=== PATIENT | female | born 1950 | race Caucasian/White ===

== ENCOUNTER 2018-06-03 14:23 | Inpatient (IN) | payer MEDICARE, MEDICAID ==
[~2018-06-03] VITALS: Ht 177.8 cm; Wt 83.5 kg
[~2018-06-03 14:23] MED LIST: ASPI-1264 PO; BUPR-83 PO; CELE-193 PO; HYDR-4353 PO; LORA-512 PO; OMEP20CA10 PO; OXYB5TAB11 PO; SIME125C PO; SIME125C77 PO; TRAZ-218 PO; WALKERFR
[2018-06-03] MEDS ORDERED: metoclopramide 10mg tablet PO PRN (15:40)
[2018-06-03 16:37] VITALS: BP 134/63
[2018-06-03] MEDS: ascorbic acid 500mg tablet PO SCH (16:41)
[2018-06-03 18:00] VITALS: BP 108/56
[2018-06-03] MEDS ORDERED: buPROPion SR 150mg tablet PO SCH (20:00)
[2018-06-03] MEDS: nortriptyline 25mg capsule PO SCH (21:07)
[2018-06-03] MEDS: oxybutynin 5mg tablet PO SCH (21:07)
[2018-06-03 22:00] VITALS: BP 120/63
[2018-06-04] VITALS (17 sets, daily range): BP systolic 106–142; BP diastolic 44–85
--- NOTE | 2018-06-04 00:31 | NUR ---
pt fully ambulatory. no scd's Addendum: 06/04/18 at 0036 by Nellie Epperson RN Amended: Links added.
[2018-06-04] MEDS ORDERED: tranexamic acid inj. 830 MG in normal saline 100ml IV soln 100 ML IV ONE ×4 (05:30→15:00)
--- NOTE | 2018-06-04 06:45 | NUR ---
pt ready for surgery. check list complete. noted small IV, lab attempting to draw blood at this time. received order for symbacort. order placed
[2018-06-04] MEDS ORDERED: BUDE10.2 INH (06:47)
[2018-06-04] MEDS ORDERED: ketorolac trometh. 30mg/ml inj. ONE (06:49)
[2018-06-04] MEDS ORDERED: ROPIVAcaine 0.5% (5mg/ml) 30ml vial ONE ×2 (06:49→07:18)
[2018-06-04 07:07] LABS: BASOPHILS % (AUTO) 0.6 % (0-1); EOSINOPHILS # (AUTO) 0.1 X10'3 (0-0.9); EOSINOPHILS % (AUTO) 1.6 % (0-6); LYMPHOCYTES # (AUTO) 1.2 X10'3 (1.1-4.8); MEAN CORPUSCULAR HEMOGLOBIN 29.4 PG (27.0-31.0); MEAN CORPUSCULAR HGB CONC 33.7 g/dL (33.0-36.5); MEAN CORPUSCULAR VOLUME 87.2 FL (78-98); MEAN PLATELET VOLUME 6.7 FL (7.4-10.4); MONOCYTES # (AUTO) 0.9 X10'3 (0-0.9); MONOCYTES % (AUTO) 13.1 % (2-12); NEUTROPHILS # (AUTO) 4.7 X10'3 (1.8-7.7); NEUTROPHILS % (AUTO) 67.7 % (42-75); PRE OP HEMOGLOBIN 11.4 g/dL (12.0-16.0); PRE OP PLATELET COUNT 289 X10'3 (140-440); RED CELL DISTRIBUTION WIDTH 14.5 % (11.5-14.5)
[2018-06-04 07:19] LABS: ALBUMIN 2.6 G/DL (3.4-5.0); ALBUMIN/GLOBULIN RATIO 0.6 (1.1-1.5); ALKALINE PHOSPHATASE 74 IU/L (46-116); BLOOD UREA NITROGEN 14 MG/DL (7-18); BUN/CREATININE RATIO 17.3 (6.6-38.0); CALCIUM 8.9 MG/DL (8.5-10.1); CHLORIDE 104 MMOL/L (99-107); CREATININE 0.81 MG/DL (0.40-0.90); PRE OP ALT 27 U/L (30-65); PRE OP ANION GAP 7 (8-16); PRE OP AST 25 U/L (10-37); PRE OP BILIRUB, TOTAL 0.2 MG/DL (0.0-1.0); PRE OP GLUCOSE 88 MG/DL (70-104); PRE OP POTASSIUM 4.4 MMOL/L (3.4-5.1); PRE OP SODIUM 140 MMOL/L (135-145); TOTAL CARBON DIOXIDE 29.5 MMOL/L (24-32); TOTAL PROTEIN 6.8 G/DL (6.4-8.2); eGFR 71 ML/MIN
--- NOTE | 2018-06-04 07:20 | NUR ---
PATIENT TAKEN TO OR
[2018-06-04] MEDS ORDERED: cefazolin/dext.iso 2gm/100ml BAG IV ONE (07:21)
[2018-06-04] MEDS ORDERED: fentaNYL/PF 50MCG/1 ML 2ML syringe ONE (07:21)
[2018-06-04] MEDS ORDERED: sevoflurane 250ml liquid IH ONE (07:21)
[2018-06-04] MEDS ORDERED: vancomycin 1,000mg inj ONE (07:21)
[2018-06-04] MEDS ORDERED: midazolam 2 mg/2 ml injection ONE ×2 (07:22)
[2018-06-04] MEDS ORDERED: propofol inj 20 ML IV ONE (07:22)
[2018-06-04 07:25] LABS: PRE OP PARTIAL THROMB. TIME 26 SECONDS (22-32); PROTHROMBIN TIME 10.2 SECONDS (9.0-12.0)
[2018-06-04] MEDS: pantoprazole 40mg Tablet.DR PO SCH (07:30)
[2018-06-04] MEDS: oxybutynin 5mg tablet PO SCH ×3 (08:00→20:30)
[2018-06-04] MEDS: primidone 50mg tablet PO SCH (08:00)
[2018-06-04] MEDS: budesonide 0.5mg/2ml UD nebule IH SCH ×2 (08:00→20:23)
[2018-06-04] MEDS ORDERED: celeCOXIB 100mg capsule PO SCH (08:00)
[2018-06-04] MEDS: ferrous sulfate 325mg tablet PO SCH (08:00)
[2018-06-04] MEDS: cetirizine 10mg tablet PO SCH (08:00)
[2018-06-04] MEDS: vitamin D (cholecalciferol) 1,000 unit tablet PO SCH (08:00)
[2018-06-04] MEDS: ascorbic acid 500mg tablet PO SCH ×2 (08:30→17:30)
[2018-06-04] MEDS ORDERED: ringers solution, lacted 1,000 ML IV SCH (08:38)
[2018-06-04] MEDS ORDERED: morphine 4 MG/ML inj SYRINge IV PRN ×2 (08:40)
[2018-06-04] MEDS ORDERED: ondansetron/PF 4mg/2ml inj IV PRN ×2 (08:40→09:45)
[2018-06-04] MEDS ORDERED: proCHLORperazine 10 MG/2 ml inj IV PRN (08:40)
[2018-06-04] MEDS ORDERED: meperidine/PF 25mg/ml syringe IV PRN ×3 (08:40)
[2018-06-04 09:25] LABS: COLOR,SYNOVIAL FLUID RED
[2018-06-04 09:26] LABS: APPEARANCE,SYNOVIAL FLUID BLOODY
[2018-06-04 09:28] LABS: SYN RBC 106250 /CU MM (0); SYN WBC 51500 /CU MM (0-200)
[2018-06-04] MEDS: potassium cl 20mEq in 1/2 NS 1,000 ML IV SCH ×2 (09:42→16:04)
[2018-06-04] MEDS ORDERED: HYDROmorphone inj. 0.5 MG/0.5 ML DISP.SYRIN IV PRN (09:45)
[2018-06-04] MEDS ORDERED: bisacodyl 10mg suppository rectal RC PRN (09:45)
[2018-06-04] MEDS ORDERED: diphenhydrAMINE 25mg capsule PO PRN ×2 (09:45)
[2018-06-04] MEDS ORDERED: HYDROmorphone 1 mg/ml syringe IV PRN (09:45)
[2018-06-04] MEDS ORDERED: oxyCODONE IR 5mg (immed. release) tablet PO PRN (09:45)
[2018-06-04] MEDS ORDERED: magnesium hydroxide 30ml (MOM) UD suspension PO PRN (09:45)
[2018-06-04] MEDS ORDERED: acetaminophen 325mg tablet PO PRN (09:45)
--- NOTE | 2018-06-04 09:59 | NUR ---
Received from OR via , accompanied by Anesthesiologist DR HERNANDEZ and report given by Anesthesiolgist. AWAKENS TO VOICE. VITALS STABLE. DRESSING DI. ANALY PAIN. LT HAND WARM AND PINK. LUE IN SIMPLE SLING.
--- NOTE | 2018-06-04 10:49 | NUR ---
Report called to receiving nurse. Transferred via BED Belongings . Special Issues communicated to receiving nurse. AWAKE AND ORIENTED. VITALS STABLE. DRESSING DI. ANALY PAIN. TO ORTHO RM 4009C AT THIS TIME.
[2018-06-04] MEDS: acetaminophen 325mg tablet PO SCH ×2 (14:00→20:30)
[2018-06-04] MEDS: gabapentin 300mg capsule PO SCH ×2 (16:05→20:30)
[2018-06-04] MEDS: ceFAZolin 1GM/D5W- ADD-VANTAGE 50 ML IV SCH (16:05)
--- NOTE | 2018-06-04 18:27 | NUR ---
Report to Deanne Vang RN
--- NOTE | 2018-06-04 18:30 | NUR ---
Patient in room ORTHO 4012. I have received report from TATE Chacko and had the opportunity to ask questions and assume patient care.
[2018-06-04] MEDS ORDERED: vancomycin/NS 1 GM ADD-VANTAGE 250 ML IV SCH (20:00)
[2018-06-04] MEDS: lactobacillus rhamnosus 10,000 MMU CELLS/CAPSULE PO SCH (20:29)
[2018-06-04] MEDS: buPROPion SR 150mg tablet PO SCH (20:30)
[2018-06-04] MEDS: nortriptyline 25mg capsule PO SCH (20:30)
[2018-06-04] MEDS: sennosides 8.6mg tablet PO SCH (20:30)
[2018-06-05] MEDS: ceFAZolin 1GM/D5W- ADD-VANTAGE 50 ML IV SCH ×3 (00:05→17:01)
[2018-06-05] MEDS: benzonatate 100mg capsule PO PRN ×2 (01:13→14:07)
[2018-06-05] MEDS: acetaminophen 325mg tablet PO SCH ×4 (01:14→20:31)
[2018-06-05] MEDS: oxyCODONE IR 5mg (immed. release) tablet PO PRN ×4 (01:15→17:01)
[2018-06-05 02:45] VITALS: BP 118/62
[2018-06-05] MEDS: potassium cl 20mEq in 1/2 NS 1,000 ML IV SCH ×4 (03:06→22:31)
[2018-06-05 05:00] VITALS: BP 129/60
--- NOTE | 2018-06-05 05:22 | NUR ---
reviewed and agree with SRN assessment findings.
--- NOTE | 2018-06-05 05:33 | NUR ---
PULLED HEMOVAC PER DOCTORS ORDERS. 50mL OF DRAINAGE Addendum: 06/05/18 at 0534 by Danisha Moncada STUDENT REBECA WRONG PATIENT. DISREGARD
--- NOTE | 2018-06-05 06:11 | NUR ---
Problems reprioritized. Patient report given, questions answered & plan of care reviewed with TATE Chacko.
[2018-06-05 07:01] LABS: BASOPHILS % (AUTO) 0.4 % (0-1); EOSINOPHILS # (AUTO) 0.1 X10'3 (0-0.9); HEMATOCRIT 31.7 % (35.0-45.0); HEMOGLOBIN 10.6 g/dl (12.0-16.0); LYMPHOCYTES # (AUTO) 2.4 X10'3 (1.1-4.8); LYMPHOCYTES % (AUTO) 22.1 % (21-51); MEAN CORPUSCULAR HEMOGLOBIN 29.8 PG (27.0-31.0); MEAN CORPUSCULAR HGB CONC 33.4 g/dL (33.0-36.5); MEAN CORPUSCULAR VOLUME 89.1 FL (78-98); MEAN PLATELET VOLUME 7.2 FL (7.4-10.4); MONOCYTES # (AUTO) 1.3 X10'3 (0-0.9); NEUTROPHILS # (AUTO) 6.9 X10'3 (1.8-7.7); NEUTROPHILS % (AUTO) 64.5 % (42-75); PLATELET COUNT 321 X10'3 (140-440); RED BLOOD COUNT 3.56 X10'6 (4.20-5.60); RED CELL DISTRIBUTION WIDTH 14.8 % (11.5-14.5); WHITE BLOOD COUNT 10.7 X10'3 (4.5-11.0)
[2018-06-05 07:06] LABS: ANION GAP 6 (8-16); CHLORIDE 104 MMOL/L (99-107); POTASSIUM 4.5 MMOL/L (3.5-5.1); SODIUM 137 MMOL/L (135-145); TOTAL CARBON DIOXIDE 27.1 MMOL/L (24-32)
[2018-06-05] MEDS: pantoprazole 40mg Tablet.DR PO SCH (07:30)
[2018-06-05] MEDS: budesonide 0.5mg/2ml UD nebule IH SCH ×2 (08:48→19:59)
[2018-06-05] MEDS: gabapentin 300mg capsule PO SCH ×3 (09:09→20:31)
[2018-06-05] MEDS: ferrous sulfate 325mg tablet PO SCH (09:09)
[2018-06-05] MEDS: ascorbic acid 500mg tablet PO SCH ×2 (09:10→17:02)
[2018-06-05] MEDS: vitamin D (cholecalciferol) 1,000 unit tablet PO SCH (09:10)
[2018-06-05] MEDS: lactobacillus rhamnosus 10,000 MMU CELLS/CAPSULE PO SCH ×2 (09:10→20:31)
[2018-06-05] MEDS: celeCOXIB 100mg capsule PO SCH ×2 (09:10→20:30)
[2018-06-05] MEDS: primidone 50mg tablet PO SCH (09:11)
[2018-06-05] MEDS: buPROPion SR 150mg tablet PO SCH ×2 (09:12→20:30)
[2018-06-05] MEDS: aspirin 325mg tablet PO SCH (09:12)
[2018-06-05] MEDS: oxybutynin 5mg tablet PO SCH ×3 (09:12→20:30)
[2018-06-05] MEDS: cetirizine 10mg tablet PO SCH (09:12)
[2018-06-05 10:00] VITALS: BP 115/50
[2018-06-05 14:00] VITALS: BP 107/35
[2018-06-05] MEDS: vancomycin inj 1,250 MG in NS 250ml IV soln IV SCH (14:04)
[2018-06-05 18:00] VITALS: BP 131/41
--- NOTE | 2018-06-05 18:25 | NUR ---
Report to Deanne Vang RN
[2018-06-05] MEDS: nortriptyline 25mg capsule PO SCH (20:30)
[2018-06-05] MEDS: sennosides 8.6mg tablet PO SCH (20:31)
[2018-06-05] MEDS: traZODone 50mg tablet PO PRN (20:35)
[2018-06-05 22:00] VITALS: BP 120/46
--- NOTE | 2018-06-05 23:32 | NUR ---
Reviewed and agree with SRN assessment findings.
[2018-06-06] MEDS: oxyCODONE IR 5mg (immed. release) tablet PO PRN ×6 (00:08→22:07)
[2018-06-06] MEDS: vancomycin inj 1,250 MG in NS 250ml IV soln IV SCH ×3 (00:09→23:54)
[2018-06-06] MEDS: acetaminophen 325mg tablet PO SCH ×2 (02:00→09:50)
[2018-06-06 05:00] VITALS: BP 128/53
--- NOTE | 2018-06-06 06:25 | NUR ---
Problems reprioritized. Patient report given, questions answered & plan of care reviewed with TATE CALIXTO.
[2018-06-06 07:26] LABS: BASOPHILS % (AUTO) 0.7 % (0-1); EOSINOPHILS # (AUTO) 0.2 X10'3 (0-0.9); EOSINOPHILS % (AUTO) 3.3 % (0-6); HEMATOCRIT 31.6 % (35.0-45.0); HEMOGLOBIN 10.6 g/dl (12.0-16.0); LYMPHOCYTES # (AUTO) 1.8 X10'3 (1.1-4.8); LYMPHOCYTES % (AUTO) 24.2 % (21-51); MEAN CORPUSCULAR HEMOGLOBIN 29.8 PG (27.0-31.0); MEAN CORPUSCULAR HGB CONC 33.4 g/dL (33.0-36.5); MEAN CORPUSCULAR VOLUME 89.2 FL (78-98); MONOCYTES # (AUTO) 0.8 X10'3 (0-0.9); MONOCYTES % (AUTO) 10.7 % (2-12); NEUTROPHILS # (AUTO) 4.5 X10'3 (1.8-7.7); NEUTROPHILS % (AUTO) 61.1 % (42-75); PLATELET COUNT 263 X10'3 (140-440); RED BLOOD COUNT 3.54 X10'6 (4.20-5.60); RED CELL DISTRIBUTION WIDTH 14.9 % (11.5-14.5); WHITE BLOOD COUNT 7.4 X10'3 (4.5-11.0)
[2018-06-06] MEDS: budesonide 0.5mg/2ml UD nebule IH SCH ×2 (09:15→20:24)
[2018-06-06] MEDS ORDERED: acetaminophen 325mg tablet PO PRN (09:45)
[2018-06-06] MEDS: gabapentin 300mg capsule PO SCH ×3 (09:49→21:08)
[2018-06-06] MEDS: aspirin 325mg tablet PO SCH (09:49)
[2018-06-06] MEDS: buPROPion SR 150mg tablet PO SCH ×2 (09:49→21:08)
[2018-06-06] MEDS: lactobacillus rhamnosus 10,000 MMU CELLS/CAPSULE PO SCH ×2 (09:50→21:08)
[2018-06-06] MEDS: primidone 50mg tablet PO SCH (09:50)
[2018-06-06] MEDS: ferrous sulfate 325mg tablet PO SCH (09:50)
[2018-06-06] MEDS: ascorbic acid 500mg tablet PO SCH ×2 (09:50→18:02)
[2018-06-06] MEDS: cetirizine 10mg tablet PO SCH (09:51)
[2018-06-06] MEDS: oxybutynin 5mg tablet PO SCH ×3 (09:51→21:08)
[2018-06-06] MEDS: celeCOXIB 100mg capsule PO SCH ×2 (09:51→21:08)
[2018-06-06] MEDS: pantoprazole 40mg Tablet.DR PO SCH (09:51)
[2018-06-06] MEDS: vitamin D (cholecalciferol) 1,000 unit tablet PO SCH (09:58)
[2018-06-06 10:00] VITALS: BP 121/48
[2018-06-06 18:00] VITALS: BP 131/44
--- NOTE | 2018-06-06 18:29 | NUR ---
Problems reprioritized. Patient report given, questions answered & plan of care reviewed with TATE Roman.
--- NOTE | 2018-06-06 18:39 | NUR ---
Report rec'd from danielle Sutton.
[2018-06-06] MEDS: nortriptyline 25mg capsule PO SCH (21:07)
[2018-06-06] MEDS: traZODone 50mg tablet PO PRN (21:09)
[2018-06-06] MEDS: sennosides 8.6mg tablet PO SCH (21:09)
[2018-06-06 22:00] VITALS: BP 110/42
[2018-06-06] MEDS ORDERED: VANCOMYCIN LEVEL IV ONE (23:30)
--- NOTE | 2018-06-07 00:30 | NUR ---
Vanco Trough 22.3, vanco stopped. pharmacy notified, will readjust and dose next.
[2018-06-07] MEDS: oxyCODONE IR 5mg (immed. release) tablet PO PRN ×4 (05:00→21:20)
--- NOTE | 2018-06-07 06:18 | NUR ---
REPORT GIVEN TO TATE MACIAS.
--- NOTE | 2018-06-07 06:39 | NUR ---
RECEIVED REPORT FROM BUNNY YBARRA
--- NOTE | 2018-06-07 06:42 | NUR ---
Received report from Jessie
[2018-06-07 06:54] LABS: BASOPHILS % (AUTO) 0.7 % (0-1); EOSINOPHILS # (AUTO) 0.3 X10'3 (0-0.9); EOSINOPHILS % (AUTO) 3.9 % (0-6); HEMATOCRIT 29.5 % (35.0-45.0); HEMOGLOBIN 9.9 g/dl (12.0-16.0); LYMPHOCYTES # (AUTO) 1.6 X10'3 (1.1-4.8); LYMPHOCYTES % (AUTO) 21.8 % (21-51); MEAN CORPUSCULAR HGB CONC 33.5 g/dL (33.0-36.5); MEAN CORPUSCULAR VOLUME 89.6 FL (78-98); MEAN PLATELET VOLUME 6.7 FL (7.4-10.4); MONOCYTES # (AUTO) 0.9 X10'3 (0-0.9); MONOCYTES % (AUTO) 12.3 % (2-12); NEUTROPHILS # (AUTO) 4.4 X10'3 (1.8-7.7); NEUTROPHILS % (AUTO) 61.3 % (42-75); PLATELET COUNT 271 X10'3 (140-440); RED BLOOD COUNT 3.29 X10'6 (4.20-5.60); RED CELL DISTRIBUTION WIDTH 14.3 % (11.5-14.5); WHITE BLOOD COUNT 7.2 X10'3 (4.5-11.0)
[2018-06-07 06:57] LABS: ALBUMIN 2.2 G/DL (3.4-5.0); ANION GAP 5 (8-16); BLOOD UREA NITROGEN 13 MG/DL (7-18); BUN/CREATININE RATIO 16.5 (6.6-38.0); CALCIUM 8.7 MG/DL (8.5-10.1); CHLORIDE 103 MMOL/L (99-107); CREATININE 0.79 MG/DL (0.40-0.90); GLUCOSE 84 MG/DL (70-104); POTASSIUM 4.3 MMOL/L (3.5-5.1); SODIUM 138 MMOL/L (135-145); TOTAL CARBON DIOXIDE 30.3 MMOL/L (24-32); eGFR 73 ML/MIN
[2018-06-07 07:15] VITALS: BP 106/82
--- NOTE | 2018-06-07 08:22 | NUR ---
left shoulder surgical site, wrapped and in a sling Addendum: 06/07/18 at 0826 by Laura JOSE Amended: Links added.
[2018-06-07] MEDS: gabapentin 300mg capsule PO SCH ×3 (08:45→20:22)
[2018-06-07] MEDS: ascorbic acid 500mg tablet PO SCH ×2 (08:45→16:48)
[2018-06-07] MEDS: vitamin D (cholecalciferol) 1,000 unit tablet PO SCH (08:45)
[2018-06-07] MEDS: aspirin 325mg tablet PO SCH (08:45)
[2018-06-07] MEDS: ferrous sulfate 325mg tablet PO SCH (08:46)
[2018-06-07] MEDS: cetirizine 10mg tablet PO SCH (08:46)
[2018-06-07] MEDS: buPROPion SR 150mg tablet PO SCH ×2 (08:46→20:22)
[2018-06-07] MEDS: primidone 50mg tablet PO SCH (08:46)
[2018-06-07] MEDS: celeCOXIB 100mg capsule PO SCH ×2 (08:47→20:22)
[2018-06-07] MEDS: lactobacillus rhamnosus 10,000 MMU CELLS/CAPSULE PO SCH ×2 (08:47→20:22)
[2018-06-07] MEDS: pantoprazole 40mg Tablet.DR PO SCH (08:47)
[2018-06-07] MEDS: oxybutynin 5mg tablet PO SCH ×3 (08:47→20:22)
[2018-06-07] MEDS: budesonide 0.5mg/2ml UD nebule IH SCH ×2 (08:47→19:44)
[2018-06-07 10:00] VITALS: BP 123/52
[2018-06-07] MEDS: vancomycin/NS 1 GM ADD-VANTAGE 250 ML IV SCH (13:00)
[2018-06-07 18:00] VITALS: BP 110/44
--- NOTE | 2018-06-07 18:06 | NUR ---
REPORT GIVEN TO GUILLERMINA YBARRA
--- NOTE | 2018-06-07 19:00 | NUR ---
REPORT REC'D FROM TATE MACIAS.
[2018-06-07] MEDS: nortriptyline 25mg capsule PO SCH (20:22)
[2018-06-07] MEDS: traZODone 50mg tablet PO PRN (20:22)
[2018-06-07] MEDS: sennosides 8.6mg tablet PO SCH (20:22)
[2018-06-07 22:00] VITALS: BP 137/47
[2018-06-08] MEDS: vancomycin/NS 1 GM ADD-VANTAGE 250 ML IV SCH ×2 (01:33→12:10)
[2018-06-08] MEDS: oxyCODONE IR 5mg (immed. release) tablet PO PRN ×5 (03:26→20:12)
--- NOTE | 2018-06-08 06:54 | NUR ---
REPORT GIVEN TO TATE CHAMPAGNE.
[2018-06-08 07:08] VITALS: BP 103/39
[2018-06-08] MEDS ORDERED: CETI10TA14 PO (07:49)
[2018-06-08] MEDS ORDERED: FERR-29 PO (07:49)
[2018-06-08] MEDS ORDERED: PRIM250T48 PO (07:49)
[2018-06-08] MEDS ORDERED: NORT25CA PO (07:49)
[2018-06-08] MEDS ORDERED: CHOL50004 PO (07:49)
[2018-06-08] MEDS ORDERED: BENZ-49 PO (07:49)
[2018-06-08] MEDS ORDERED: METO10TA3 PO (07:52)
[2018-06-08 07:54] LABS: ALBUMIN 2.1 G/DL (3.4-5.0); ANION GAP 5 (8-16); BLOOD UREA NITROGEN 14 MG/DL (7-18); BUN/CREATININE RATIO 17.5 (6.6-38.0); CALCIUM 8.5 MG/DL (8.5-10.1); CHLORIDE 104 MMOL/L (99-107); GLUCOSE 87 MG/DL (70-104); POTASSIUM 4.2 MMOL/L (3.5-5.1); SODIUM 137 MMOL/L (135-145); TOTAL CARBON DIOXIDE 28.1 MMOL/L (24-32); eGFR 72 ML/MIN
[2018-06-08] MEDS: budesonide 0.5mg/2ml UD nebule IH SCH ×2 (08:00→19:54)
[2018-06-08] MEDS: oxybutynin 5mg tablet PO SCH ×3 (08:13→20:12)
[2018-06-08] MEDS: primidone 50mg tablet PO SCH (08:14)
[2018-06-08] MEDS: ascorbic acid 500mg tablet PO SCH ×2 (08:14→16:33)
[2018-06-08] MEDS: lactobacillus rhamnosus 10,000 MMU CELLS/CAPSULE PO SCH ×2 (08:14→20:12)
[2018-06-08] MEDS: pantoprazole 40mg Tablet.DR PO SCH (08:14)
[2018-06-08] MEDS: aspirin 325mg tablet PO SCH (08:14)
[2018-06-08] MEDS: cetirizine 10mg tablet PO SCH (08:14)
[2018-06-08] MEDS: ferrous sulfate 325mg tablet PO SCH (08:14)
[2018-06-08] MEDS: vitamin D (cholecalciferol) 1,000 unit tablet PO SCH (08:14)
[2018-06-08] MEDS: gabapentin 300mg capsule PO SCH ×3 (08:14→20:12)
[2018-06-08] MEDS: celeCOXIB 100mg capsule PO SCH ×2 (08:14→20:12)
[2018-06-08] MEDS: buPROPion SR 150mg tablet PO SCH ×2 (08:14→20:12)
[2018-06-08 11:54] VITALS: BP 111/53
--- NOTE | 2018-06-08 13:28 | NUR ---
Initial: Pt s/p antibiotic spacer to L shoulder. LBM 06/03 on iron and senna. Pt passing gas and declines taking additional bowel care at this time. Pt PO 100% regular meals meeting needs. Will continue to monitor. Rec: 1. continue regular diet 2. routine bowel care 3. wt per rx Addendum: 06/08/18 at [address] Amended: Links added.
[2018-06-08 17:30] VITALS: BP 120/51
[2018-06-08] MEDS: sennosides 8.6mg tablet PO SCH (20:12)
[2018-06-08] MEDS: nortriptyline 25mg capsule PO SCH (20:12)
[2018-06-08 23:04] VITALS: BP 128/68
[2018-06-08] MEDS ORDERED: VANCOMYCIN LEVEL IV NR (23:30)
[2018-06-09] MEDS: oxyCODONE IR 5mg (immed. release) tablet PO PRN ×3 (00:02→12:04)
[2018-06-09] MEDS: vancomycin/NS 1 GM ADD-VANTAGE 250 ML IV SCH ×2 (00:03→12:05)
[2018-06-09 06:00] VITALS: BP 131/67
[2018-06-09 06:11] LABS: ALBUMIN 2.3 G/DL (3.4-5.0); ANION GAP 4 (8-16); BLOOD UREA NITROGEN 12 MG/DL (7-18); BUN/CREATININE RATIO 14.6 (6.6-38.0); CALCIUM 8.3 MG/DL (8.5-10.1); CHLORIDE 104 MMOL/L (99-107); CREATININE 0.82 MG/DL (0.40-0.90); GLUCOSE 85 MG/DL (70-104); POTASSIUM 4.1 MMOL/L (3.5-5.1); SODIUM 138 MMOL/L (135-145); TOTAL CARBON DIOXIDE 29.9 MMOL/L (24-32); eGFR 70 ML/MIN
[2018-06-09] MEDS: pantoprazole 40mg Tablet.DR PO SCH (07:37)
[2018-06-09] MEDS: celeCOXIB 100mg capsule PO SCH (07:38)
[2018-06-09] MEDS: primidone 50mg tablet PO SCH (07:38)
[2018-06-09] MEDS: oxybutynin 5mg tablet PO SCH ×2 (07:38→12:04)
[2018-06-09] MEDS: lactobacillus rhamnosus 10,000 MMU CELLS/CAPSULE PO SCH (07:38)
[2018-06-09] MEDS: ferrous sulfate 325mg tablet PO SCH (07:38)
[2018-06-09] MEDS: gabapentin 300mg capsule PO SCH ×2 (07:38→12:04)
[2018-06-09] MEDS: ascorbic acid 500mg tablet PO SCH (07:39)
[2018-06-09] MEDS: aspirin 325mg tablet PO SCH (07:39)
[2018-06-09] MEDS: cetirizine 10mg tablet PO SCH (07:39)
[2018-06-09] MEDS: buPROPion SR 150mg tablet PO SCH (07:39)
[2018-06-09] MEDS: vitamin D (cholecalciferol) 1,000 unit tablet PO SCH (07:39)
[2018-06-09] MEDS ORDERED: ondansetron 4mg rapidly disintigrating tab PO ONE (08:25)
[2018-06-09 10:00] VITALS: BP 119/49
[2018-06-09] MEDS: budesonide 0.5mg/2ml UD nebule IH SCH (11:31)
--- NOTE | 2018-06-09 13:16 | NUR ---
Report called to GUSTAVO Wells RN, no tele, Picc line remaining in for Antibiotic use.
== END 2018-06-09 15:35 | DRG 496 ==
LOC: ORTHO 4S 14:23 → EDSTATUS 06-04 07:30
PROVIDERS: ADMIT Orthopaedic Surgery; ATTEND Orthopaedic Surgery
PROC: 0RPK0JZ Removal of Synthetic Substitute from Left Shoulder Joint, Open Approach (ICD-10-PCS; 2018-06-04)
PROC: 3E0R3BZ Introduction of Anesthetic Agent into Spinal Canal, Percutaneous Approach (ICD-10-PCS; 2018-06-04)
PROC: 0RHK08Z Insertion of Spacer into Left Shoulder Joint, Open Approach (ICD-10-PCS; principal; 2018-06-04 07:21)
PROC: 02HV33Z Insertion of Infusion Device into Superior Vena Cava, Percutaneous Approach (ICD-10-PCS; 2018-06-09)
PROC: 4A02X4A Measurement of Cardiac Electrical Activity, Guidance, External Approach (ICD-10-PCS; 2018-06-09)
DX: T84.59XA Infection and inflammatory reaction due to other internal joint prosthesis, initial encounter (principal); D62 Acute posthemorrhagic anemia; M75.122 Complete rotator cuff tear or rupture of left shoulder, not specified as traumatic; K21.9 Gastro-esophageal reflux disease without esophagitis; F32.9 Major depressive disorder, single episode, unspecified; Z96.619 Presence of unspecified artificial shoulder joint; Z79.82 Long term (current) use of aspirin
CPT/HCPCS: 36415; 36569; 76937; 80048; 80051; 80053; 80202; 82948; 85025; 85610; 85730; 87070; 87075; 87102; 87176; 89051; 93005; 94640; 94760; A4565; A7000; C1713; G0378; J0690; J1885; J2250; J2405; J2704; J2795; J3010; J3370; J7030; J7040; J7120; J7626

== ENCOUNTER 2018-06-21 12:13 | Emergency (ER) | payer MEDICARE, MEDICAID ==
[~2018-06-21] VITALS: Ht 304.8 cm; Wt 83.2 kg
[~2018-06-21 12:13] MED LIST changes: +BENZ-49 PO; +BUDE10.2 INH; +CETI10TA14 PO; +CHOL50004 PO; +FERR-29 PO; -HYDR-4353 PO; -LORA-512 PO; +METO10TA3 PO; +NORT25CA PO; +PRIM250T48 PO; -SIME125C PO; -SIME125C77 PO
[2018-06-21 12:15] VITALS: BP 117/48
[2018-06-21 12:51] LABS: BASOPHILS % (AUTO) 0.6 % (0-1); EOSINOPHILS # (AUTO) 0.3 X10'3 (0-0.9); EOSINOPHILS % (AUTO) 4.3 % (0-6); HEMATOCRIT 31.1 % (35.0-45.0); HEMOGLOBIN 10.6 g/dl (12.0-16.0); LYMPHOCYTES % (AUTO) 17.1 % (21-51); MEAN CORPUSCULAR HEMOGLOBIN 30.3 PG (27.0-31.0); MEAN CORPUSCULAR HGB CONC 33.9 g/dL (33.0-36.5); MEAN CORPUSCULAR VOLUME 89.4 FL (78-98); MEAN PLATELET VOLUME 6.6 FL (7.4-10.4); MONOCYTES # (AUTO) 0.7 X10'3 (0-0.9); MONOCYTES % (AUTO) 12.3 % (2-12); NEUTROPHILS % (AUTO) 65.7 % (42-75); PLATELET COUNT 264 X10'3 (140-440); RED BLOOD COUNT 3.48 X10'6 (4.20-5.60); RED CELL DISTRIBUTION WIDTH 14.9 % (11.5-14.5)
[2018-06-21 13:04] LABS: ALANINE AMINOTRANSFERASE 33 U/L (12-78); ALBUMIN 2.7 G/DL (3.4-5.0); ALBUMIN/GLOBULIN RATIO 0.6 (1.1-1.5); ALKALINE PHOSPHATASE 115 IU/L (46-116); ANION GAP 4 (8-16); ASPARTATE AMINO TRANSFERASE 30 U/L (10-37); BILIRUBIN,TOTAL 0.3 MG/DL (0.1-1.0); BLOOD UREA NITROGEN 11 MG/DL (7-18); BUN/CREATININE RATIO 14.3 (6.6-38.0); CALCIUM 8.4 MG/DL (8.5-10.1); CHLORIDE 100 MMOL/L (99-107); CREATININE 0.77 MG/DL (0.40-0.90); GLUCOSE 109 MG/DL (70-104); SODIUM 134 MMOL/L (135-145); TOTAL CARBON DIOXIDE 29.7 MMOL/L (24-32); eGFR 75 ML/MIN
--- NOTE | 2018-06-21 14:20 | NUR ---
TC TO [facility]. NURSE ON DUTY STATES THAT PATIENT SHOULD RETURN TO THE FACILITY VIA [facility]. DC INSTRUCTIONS GIVEN TO PATIENT AND VERBALIZED UNDERSTANDING.
== END 2018-06-21 14:25 | disposition home or self-care (01) ==
LOC: ER 12:13
DX: T84.59XA Infection and inflammatory reaction due to other internal joint prosthesis, initial encounter (principal); G43.909 Migraine, unspecified, not intractable, without status migrainosus; K21.9 Gastro-esophageal reflux disease without esophagitis; G89.29 Other chronic pain; Z98.890 Other specified postprocedural states; Z88.5 Allergy status to narcotic agent; Z88.8 Allergy status to other drugs, medicaments and biological substances; Z91.030 Bee allergy status; Z79.899 Other long term (current) drug therapy; Z79.82 Long term (current) use of aspirin; Z96.612 Presence of left artificial shoulder joint
CPT/HCPCS: 36415; 71045; 80053; 83605; 84145; 85025; 87040; 99284

== ENCOUNTER 2018-06-30 21:51 | Emergency (ER) | payer MEDICARE, MEDICAID | END 2018-06-30 21:59 | disposition left against medical advice (07) | LOC: ER 21:52 | DX: T82.49XA Other complication of vascular dialysis catheter, initial encounter (principal); Z53.21 Procedure and treatment not carried out due to patient leaving prior to being seen by health care provider; Y92.89 Other specified places as the place of occurrence of the external cause ==

== ENCOUNTER 2018-12-01 10:49 | Inpatient (IN) | payer MEDICARE, MEDICAID ==
[2018-11-23 14:44] LABS: BASOPHILS # (AUTO) 0.1 X10'3 (0-0.2); BASOPHILS % (AUTO) 0.7 % (0-1); EOSINOPHILS # (AUTO) 0.1 X10'3 (0-0.9); EOSINOPHILS % (AUTO) 1.6 % (0-6); LYMPHOCYTES # (AUTO) 1.5 X10'3 (1.1-4.8); LYMPHOCYTES % (AUTO) 17.9 % (21-51); MEAN CORPUSCULAR HEMOGLOBIN 30.1 PG (27.0-31.0); MEAN CORPUSCULAR HGB CONC 34.4 g/dL (33.0-36.5); MEAN CORPUSCULAR VOLUME 87.4 FL (78-98); MEAN PLATELET VOLUME 6.9 FL (7.4-10.4); MONOCYTES # (AUTO) 0.8 X10'3 (0-0.9); MONOCYTES % (AUTO) 10.1 % (2-12); NEUTROPHILS # (AUTO) 5.7 X10'3 (1.8-7.7); NEUTROPHILS % (AUTO) 69.7 % (42-75); PRE OP HEMATOCRIT 41.2 % (35.0-45.0); PRE OP HEMOGLOBIN 14.2 g/dL (12.0-16.0); PRE OP PLATELET COUNT 340 X10'3 (140-440); RED BLOOD COUNT 4.71 X10'6 (4.20-5.60); RED CELL DISTRIBUTION WIDTH 13.6 % (11.5-14.5)
[2018-11-23 14:57] LABS: PRE OP INR 0.9 INR; PRE OP PROTIME 9.9 SECONDS (9.0-12.0)
[2018-11-23 15:00] LABS: ALBUMIN 3.4 G/DL (3.4-5.0); ALBUMIN/GLOBULIN RATIO 0.7 (1.1-1.5); ALKALINE PHOSPHATASE 114 IU/L (46-116); BLOOD UREA NITROGEN 13 MG/DL (7-18); BUN/CREATININE RATIO 14.3 (6.6-38.0); CALCIUM 9.4 MG/DL (8.5-10.1); CHLORIDE 104 MMOL/L (99-107); CREATININE 0.91 MG/DL (0.40-0.90); PRE OP ALT 22 U/L (30-65); PRE OP ANION GAP 8 (8-16); PRE OP AST 20 U/L (10-37); PRE OP BILIRUB, TOTAL 0.3 MG/DL (0.0-1.0); PRE OP GLUCOSE 99 MG/DL (70-104); PRE OP POTASSIUM 4.3 MMOL/L (3.4-5.1); PRE OP SODIUM 139 MMOL/L (135-145); TOTAL CARBON DIOXIDE 26.6 MMOL/L (24-32); TOTAL PROTEIN 8.4 G/DL (6.4-8.2); eGFR 61 ML/MIN
[~2018-12-01] VITALS: Ht 175.3 cm; Wt 93.0 kg
[2018-12-01] VITALS (16 sets, daily range): BP systolic 120–168; BP diastolic 55–81
[~2018-12-01 10:49] MED LIST changes: +ASCO500C15 PO; -ASPI-1264 PO; +BIOT50002 PO; +MESSAGE TO NURSING IV ONE; -OMEP20CA10 PO; +OMEP20CA11 PO; -OXYB5TAB11 PO; +OXYB5TAB16 PO; -PRIM250T48 PO; +PRIM250T8 PO; -TRAZ-218 PO; +TRAZ-251 PO; -WALKERFR; +albuterol 2.5 MG/3 ML nebule NEB ONE; +famotidine 20mg tablet PO ONE; +ringers solution, lacted 1,000 ML IV SCH
[2018-12-01] MEDS ORDERED: cefazolin/dext.iso 2gm/50ml 50 ML IV ONE (13:50)
[2018-12-01] MEDS ORDERED: ROPIVAcaine 0.5% (5mg/ml) 30ml vial ONE ×2 (13:52→14:54)
[2018-12-01] MEDS ORDERED: tranexamic acid inj. 920 MG in normal saline 100ml IV soln 100 ML IV ONE ×4 (13:55)
[2018-12-01] MEDS ORDERED: vancomycin inj 1,500 MG in normal saline 300ml IV soln IV ONE (14:40)
[2018-12-01] MEDS ORDERED: ketorolac trometh. 30mg/ml inj. ONE (14:52)
[2018-12-01] MEDS ORDERED: propofol inj 20 ML IV ONE (14:53)
[2018-12-01] MEDS ORDERED: LIDOcaine 2% (20mg/ml) 5ml vial ONE (14:53)
[2018-12-01] MEDS ORDERED: dexamethasone sod phosphate 4mg/ml inj. ONE (14:54)
[2018-12-01] MEDS ORDERED: fentaNYL/PF 50MCG/1 ML 2ML syringe ONE ×2 (15:01→15:31)
[2018-12-01] MEDS ORDERED: sevoflurane 250ml liquid IH ONE (15:28)
[2018-12-01] MEDS ORDERED: ondansetron/PF 4mg/2ml inj ONE (15:28)
[2018-12-01] MEDS ORDERED: MIDAZolam 5mg/5ml vial ONE (15:31)
[2018-12-01] MEDS ORDERED: ondansetron/PF 4mg/2ml inj IV PRN ×2 (16:40→18:05)
[2018-12-01] MEDS ORDERED: morphine 4 MG/ML inj SYRINge IV PRN ×2 (16:40)
[2018-12-01] MEDS ORDERED: proCHLORperazine 10 MG/2 ml inj IV PRN (16:40)
[2018-12-01] MEDS ORDERED: meperidine/PF 25mg/ml syringe IV PRN ×3 (16:40)
[2018-12-01] MEDS ORDERED: ringers solution, lacted 1,000 ML IV SCH (16:40)
[2018-12-01] MEDS ORDERED: ROPIVAcaine 0.2%/PF PAIN PUMP 550 ML IJ SCH (17:01)
[2018-12-01] MEDS ORDERED: vancomycin 1,000mg inj ONE (17:27)
--- NOTE | 2018-12-01 18:00 | NUR ---
ADMITTED TO PACU FROM OR ACCOMPANIED BY ANESTHESIA. INTIAL PHYSICAL ASSESSMENT DONE AND RECORDED. AWAKE AND RESPONSE ON ARRIVE YO PACU, REPORT RECEIVED FROM ANESTHESIA.
[2018-12-01] MEDS ORDERED: HYDROmorphone inj. 0.5 MG/0.5 ML DISP.SYRIN IV PRN (18:05)
[2018-12-01] MEDS ORDERED: bisacodyl 10mg suppository rectal RC PRN (18:05)
[2018-12-01] MEDS ORDERED: acetaminophen 325mg tablet PO PRN (18:05)
[2018-12-01] MEDS ORDERED: diphenhydrAMINE 25mg capsule PO PRN ×2 (18:05)
[2018-12-01] MEDS ORDERED: magnesium hydroxide 30ml (MOM) UD suspension PO PRN (18:05)
[2018-12-01] MEDS ORDERED: HYDROmorphone 1 mg/ml syringe IV PRN (18:05)
[2018-12-01] MEDS ORDERED: oxyCODONE IR 5mg (immed. release) tablet PO PRN (18:05)
--- NOTE | 2018-12-01 18:45 | NUR ---
PACU DISCHARGE CRITERIA MET, REPORT GIVEN TO FLOOR. DENIES PAIN OR DISCOMFORT, TRANSFERRED TO ROOM IN STABLE GOOD CONDITION.
[2018-12-01 19:29] LABS: APPEARANCE,SYNOVIAL FLUID BLOODY; COLOR,SYNOVIAL FLUID RED
[2018-12-01 19:30] LABS: LYMPHOCYTES,SYNOVIAL FLUID 48 % (0-75); MONOCYTES,SYNOVIAL FLUID 32 % (0-0); NEUTROPHILS,SYNOVIAL FLUID 20 % (0-25); SYN RBC 42300 /CU MM (0); SYN WBC 402 /CU MM (0-200)
[2018-12-01 19:37] LABS: SYNOVIAL LINING CELLS MANY
[2018-12-01] MEDS ORDERED: vancomycin/NS 1 GM ADD-VANTAGE 250 ML IV SCH (20:00)
[2018-12-01] MEDS: budesonide 0.5mg/2ml UD nebule IH SCH (20:27)
[2018-12-01] MEDS: albuterol 2.5 MG/3 ML nebule NEB SCH (20:27)
[2018-12-01] MEDS: acetaminophen 325mg tablet PO SCH (20:49)
[2018-12-01] MEDS: sennosides 8.6mg tablet PO SCH (20:49)
[2018-12-01] MEDS: buPROPion SR 150mg tablet PO SCH (20:49)
[2018-12-01] MEDS: traZODone 50mg tablet PO SCH (20:49)
[2018-12-01] MEDS: benzonatate 100mg capsule PO SCH (20:49)
[2018-12-01] MEDS: celeCOXIB 100mg capsule PO SCH (20:49)
[2018-12-01] MEDS: oxybutynin 5mg tablet PO SCH (20:50)
[2018-12-01] MEDS: ferrous sulfate 325mg tablet PO SCH (20:50)
--- NOTE | 2018-12-01 21:00 | NUR ---
Pt denies ever being diagnosed with diabetes, refused accucheck, post-op BG 85.
[2018-12-01] MEDS ORDERED: TRANEXAMIC ACID IV ONE (21:06)
[2018-12-01] MEDS ORDERED: NORMAL SALINE IV ONE (21:06)
[2018-12-01] MEDS: potassium cl 20mEq in 1/2 NS 1,000 ML IV SCH (21:40)
[2018-12-01] MEDS: oxyCODONE IR 5mg (immed. release) tablet PO PRN (23:06)
[2018-12-01] MEDS: ceFAZolin 1GM/D5W- ADD-VANTAGE 50 ML IV SCH (23:49)
[2018-12-02] MEDS: acetaminophen 325mg tablet PO SCH ×3 (02:00→14:38)
[2018-12-02] MEDS: albuterol 2.5 MG/3 ML nebule NEB SCH ×4 (02:36→20:02)
[2018-12-02] MEDS: oxyCODONE IR 5mg (immed. release) tablet PO PRN ×3 (05:41→14:39)
[2018-12-02 06:00] VITALS: BP 134/59
[2018-12-02 06:39] LABS: BASOPHILS % (AUTO) 0.4 % (0-1); EOSINOPHILS % (AUTO) 0.1 % (0-6); HEMATOCRIT 32.4 % (35.0-45.0); HEMOGLOBIN 11.1 g/dl (12.0-16.0); LYMPHOCYTES # (AUTO) 0.8 X10'3 (1.1-4.8); LYMPHOCYTES % (AUTO) 6.5 % (21-51); MEAN CORPUSCULAR HEMOGLOBIN 29.9 PG (27.0-31.0); MEAN CORPUSCULAR HGB CONC 34.2 g/dL (33.0-36.5); MEAN CORPUSCULAR VOLUME 87.4 FL (78-98); MEAN PLATELET VOLUME 7.4 FL (7.4-10.4); MONOCYTES # (AUTO) 1.1 X10'3 (0-0.9); MONOCYTES % (AUTO) 9.5 % (2-12); NEUTROPHILS # (AUTO) 9.7 X10'3 (1.8-7.7); NEUTROPHILS % (AUTO) 83.5 % (42-75); PLATELET COUNT 259 X10'3 (140-440); RED BLOOD COUNT 3.71 X10'6 (4.20-5.60); RED CELL DISTRIBUTION WIDTH 13.3 % (11.5-14.5); WHITE BLOOD COUNT 11.7 X10'3 (4.5-11.0)
[2018-12-02 06:53] LABS: ANION GAP 7 (8-16); CHLORIDE 103 MMOL/L (99-107); POTASSIUM 4.6 MMOL/L (3.5-5.1); SODIUM 135 MMOL/L (135-145); TOTAL CARBON DIOXIDE 25.2 MMOL/L (24-32)
[2018-12-02] MEDS: budesonide 0.5mg/2ml UD nebule IH SCH ×2 (07:43→20:01)
[2018-12-02] MEDS ORDERED: non-formulary drug (Biotin 2 TAB) PO SCH (08:00)
[2018-12-02] MEDS ORDERED: aspirin 325mg tablet PO SCH (08:30)
[2018-12-02 10:00] VITALS: BP 146/64
[2018-12-02] MEDS ORDERED: ASPI-1 PO (10:02)
[2018-12-02] MEDS: celeCOXIB 100mg capsule PO SCH ×2 (10:14→21:03)
[2018-12-02] MEDS: benzonatate 100mg capsule PO SCH ×3 (10:14→20:59)
[2018-12-02] MEDS: vitamin D (cholecalciferol) 1,000 unit tablet PO SCH (10:14)
[2018-12-02] MEDS: metoclopramide 10mg tablet PO SCH (10:15)
[2018-12-02] MEDS: DOXYCYCLINE 100MG CAPSULE PO SCH ×2 (10:15→17:36)
[2018-12-02] MEDS: ascorbic acid 500mg tablet PO SCH (10:15)
[2018-12-02] MEDS: ferrous sulfate 325mg tablet PO SCH ×3 (10:15→21:02)
[2018-12-02] MEDS: pantoprazole 40mg Tablet.DR PO SCH (10:15)
[2018-12-02] MEDS: oxybutynin 5mg tablet PO SCH ×3 (10:16→21:02)
[2018-12-02] MEDS: cetirizine 10mg tablet PO SCH (10:16)
[2018-12-02] MEDS: nortriptyline 25mg capsule PO SCH (10:16)
[2018-12-02] MEDS: buPROPion SR 150mg tablet PO SCH ×2 (10:16→21:00)
[2018-12-02] MEDS: ceFAZolin 1GM/D5W- ADD-VANTAGE 50 ML IV SCH (14:38)
[2018-12-02] MEDS: primidone 250mg tablet PO SCH (14:39)
[2018-12-02] MEDS: potassium cl 20mEq in 1/2 NS 1,000 ML IV SCH ×2 (14:53→14:55)
[2018-12-02] MEDS ORDERED: ROPIVAcaine 0.2%/PF PAIN PUMP 550 ML INTERSCALE SCH (15:33)
--- NOTE | 2018-12-02 15:58 | NUR ---
Joint replacement patient: Pt seen by ELLE for written/verbal high protein ed w/ RD contact information. Pt agrees to georgian yogurt and pepsi at dinner tonight; dietary notified. Will continue to monitor. Addendum: 12/02/18 at [address] Amended: Links added.
[2018-12-02 18:30] VITALS: BP 144/68
[2018-12-02] MEDS ORDERED: HYDROcodone/acetaminophen 5mg/325mg tablet PO PRN (20:55)
[2018-12-02] MEDS ORDERED: HYDROcodone/acetaminophen 10/325mg tab PO PRN ×2 (20:55)
[2018-12-02] MEDS: lactobacillus rhamnosus 10,000 MMU CELLS/CAPSULE PO SCH (20:59)
[2018-12-02] MEDS: traZODone 50mg tablet PO SCH (20:59)
[2018-12-02] MEDS: sennosides 8.6mg tablet PO SCH (21:02)
[2018-12-02] MEDS: HYDROcodone/acetaminophen 10/325mg tab PO PRN (21:31)
[2018-12-02 22:00] VITALS: BP 143/61
[2018-12-03] MEDS: albuterol 2.5 MG/3 ML nebule NEB SCH ×3 (02:00→14:10)
[2018-12-03] MEDS: HYDROcodone/acetaminophen 10/325mg tab PO PRN ×4 (02:55→16:22)
[2018-12-03 06:00] VITALS: BP 117/52
--- NOTE | 2018-12-03 06:29 | NUR ---
Problems reprioritized. Patient report given, questions answered & plan of care reviewed with Mary Tapia RN.
[2018-12-03] MEDS: budesonide 0.5mg/2ml UD nebule IH SCH (07:50)
[2018-12-03] MEDS: primidone 250mg tablet PO SCH (08:06)
[2018-12-03] MEDS: nortriptyline 25mg capsule PO SCH (08:06)
[2018-12-03] MEDS: oxybutynin 5mg tablet PO SCH ×2 (08:06→11:57)
[2018-12-03] MEDS: lactobacillus rhamnosus 10,000 MMU CELLS/CAPSULE PO SCH (08:06)
[2018-12-03] MEDS: ferrous sulfate 325mg tablet PO SCH ×2 (08:06→11:58)
[2018-12-03] MEDS: celeCOXIB 100mg capsule PO SCH (08:06)
[2018-12-03] MEDS: ascorbic acid 500mg tablet PO SCH (08:07)
[2018-12-03] MEDS: cetirizine 10mg tablet PO SCH (08:07)
[2018-12-03] MEDS: pantoprazole 40mg Tablet.DR PO SCH (08:07)
[2018-12-03] MEDS: vitamin D (cholecalciferol) 1,000 unit tablet PO SCH (08:07)
[2018-12-03] MEDS: benzonatate 100mg capsule PO SCH ×2 (08:07→11:57)
[2018-12-03] MEDS: DOXYCYCLINE 100MG CAPSULE PO SCH ×2 (08:07→16:21)
[2018-12-03] MEDS: metoclopramide 10mg tablet PO SCH (08:07)
[2018-12-03] MEDS: buPROPion SR 150mg tablet PO SCH ×2 (08:15→11:57)
[2018-12-03 10:08] VITALS: BP 144/51
[2018-12-03] MEDS ORDERED: acetaminophen 325mg tablet PO PRN (18:05)
== END 2018-12-03 17:59 | disposition home or self-care (01) | DRG 483 ==
LOC: PAS IN 10:49 → EDSTATUS 14:30 → ORTHO 4S 18:55
PROVIDERS: ADMIT Orthopaedic Surgery; ATTEND Orthopaedic Surgery
PROC: 0RPK0JZ Removal of Synthetic Substitute from Left Shoulder Joint, Open Approach (ICD-10-PCS; 2018-12-01)
PROC: 3E0T3BZ Introduction of Anesthetic Agent into Peripheral Nerves and Plexi, Percutaneous Approach (ICD-10-PCS; 2018-12-01)
PROC: 0RRK00Z Replacement of Left Shoulder Joint with Reverse Ball and Socket Synthetic Substitute, Open Approach (ICD-10-PCS; principal; 2018-12-01 15:28)
DX: T84.59XA Infection and inflammatory reaction due to other internal joint prosthesis, initial encounter (principal); D62 Acute posthemorrhagic anemia; Z96.612 Presence of left artificial shoulder joint; F32.9 Major depressive disorder, single episode, unspecified; B19.20 Unspecified viral hepatitis C without hepatic coma; K21.9 Gastro-esophageal reflux disease without esophagitis; Y79.2 Prosthetic and other implants, materials and accessory orthopedic devices associated with adverse incidents; E66.9 Obesity, unspecified; Z88.5 Allergy status to narcotic agent; Z87.891 Personal history of nicotine dependence; Z72.89 Other problems related to lifestyle; Z68.30 Body mass index [BMI] 30.0-30.9, adult; Y92.89 Other specified places as the place of occurrence of the external cause
CPT/HCPCS: 36415; 71046; 80051; 80053; 82948; 85025; 85610; 85730; 86140; 87070; 87075; 87081; 89051; 94640; 94760; 97116; 97161; 97530; A4215; A4565; A4618; A7000; C1776; G0378; J0690; J1100; J1885; J2001; J2250; J2405; J2704; J2795; J3010; J3370; J3480; J7120; J7626; J8597

== ENCOUNTER 2018-12-14 12:21 | Emergency (ER) | payer MEDICARE, MEDICAID ==
[~2018-12-14] VITALS: Ht 177.8 cm; Wt 92.7 kg
[~2018-12-14 12:21] MED LIST changes: +ASPI-1 PO; -MESSAGE TO NURSING IV ONE; -albuterol 2.5 MG/3 ML nebule NEB ONE; -famotidine 20mg tablet PO ONE; -ringers solution, lacted 1,000 ML IV SCH
--- NOTE | 2018-12-14 12:29 | NUR ---
PT. HAD SHOULDER SURGERY [address] NUÑEZ. PT. STATES SHE WAS NOT DOING ANY THING AND HER ARM WAS ALL WET. ORIGINAL DRESSING WAS RE-ENFORCED BY EMS. STILL LEAKING. SHE CALLED DR. NUÑEZ OFFICE AND GOT AN ANSWERING SERVICE SO SHE CALLED EMS. NO PAIN OR TRAUMA
--- NOTE | 2018-12-14 13:28 | NUR ---
[facility] CALLED TO TRANSFER PT FROM [facility] TO DR GARCIA [address] [place] [address] AGUILAR IS EXPECTING PT.
[2018-12-14 13:34] VITALS: BP 164/77
[2018-12-15] MEDS ORDERED: ASPI-974 PO (13:49)
[2018-12-15] MEDS ORDERED: CELE-85 PO (13:51)
[2018-12-15] MEDS ORDERED: BUPR300T54 PO (13:55)
== END 2018-12-14 13:36 | disposition home or self-care (01) ==
LOC: ER 12:22
DX: T81.89XA Other complications of procedures, not elsewhere classified, initial encounter (principal); G43.909 Migraine, unspecified, not intractable, without status migrainosus; K21.9 Gastro-esophageal reflux disease without esophagitis; G89.29 Other chronic pain; F32.9 Major depressive disorder, single episode, unspecified; Z98.890 Other specified postprocedural states; Z88.5 Allergy status to narcotic agent; Z79.82 Long term (current) use of aspirin; Z79.899 Other long term (current) drug therapy; Y83.8 Other surgical procedures as the cause of abnormal reaction of the patient, or of later complication, without mention of misadventure at the time of the procedure; Y92.89 Other specified places as the place of occurrence of the external cause
CPT/HCPCS: 99283

== ENCOUNTER 2018-12-15 11:38 | Inpatient (IN) | payer MEDICARE, MEDICAID ==
[~2018-12-15] VITALS: Ht 177.8 cm; Wt 95.0 kg
[2018-12-15] VITALS (11 sets, daily range): BP systolic 144–160; BP diastolic 70–98
[2018-12-15] MEDS ORDERED: acetaminophen 325mg tablet PO PRN ×2 (12:40→20:10)
[2018-12-15] MEDS ORDERED: ceFAZolin 1GM/D5W- ADD-VANTAGE 50 ML IV ONE (12:40)
[2018-12-15] MEDS ORDERED: diphenhydrAMINE 25mg capsule PO PRN ×4 (12:40→20:10)
[2018-12-15] MEDS ORDERED: vancomycin/NS 1 GM ADD-VANTAGE 250 ML IV ONE (12:40)
[2018-12-15] MEDS ORDERED: magnesium hydroxide 30ml (MOM) UD suspension PO PRN ×2 (12:40→20:10)
[2018-12-15] MEDS ORDERED: HYDROmorphone 1 mg/ml syringe IV PRN (12:40)
[2018-12-15] MEDS ORDERED: ondansetron/PF 4mg/2ml inj IV PRN ×3 (12:40→20:10)
[2018-12-15] MEDS ORDERED: bisacodyl 10mg suppository rectal RC PRN ×2 (12:40→20:10)
[2018-12-15] MEDS ORDERED: HYDROmorphone inj. 0.5 MG/0.5 ML DISP.SYRIN IV PRN ×2 (12:40→20:10)
[2018-12-15 12:49] LABS: BASOPHILS % (AUTO) 0.6 % (0-1); EOSINOPHILS # (AUTO) 0.3 X10'3 (0-0.9); EOSINOPHILS % (AUTO) 3.6 % (0-6); HEMATOCRIT 34.7 % (35.0-45.0); HEMOGLOBIN 11.8 g/dl (12.0-16.0); LYMPHOCYTES # (AUTO) 1.3 X10'3 (1.1-4.8); LYMPHOCYTES % (AUTO) 18.7 % (21-51); MEAN CORPUSCULAR HEMOGLOBIN 30.4 PG (27.0-31.0); MEAN CORPUSCULAR HGB CONC 34.1 g/dL (33.0-36.5); MEAN PLATELET VOLUME 6.4 FL (7.4-10.4); MONOCYTES # (AUTO) 0.7 X10'3 (0-0.9); MONOCYTES % (AUTO) 10.5 % (2-12); NEUTROPHILS # (AUTO) 4.7 X10'3 (1.8-7.7); NEUTROPHILS % (AUTO) 66.6 % (42-75); PLATELET COUNT 372 X10'3 (140-440)
[2018-12-15 13:06] LABS: ALANINE AMINOTRANSFERASE 17 U/L (12-78); ALBUMIN 3.2 G/DL (3.4-5.0); ALBUMIN/GLOBULIN RATIO 0.7 (1.1-1.5); ALKALINE PHOSPHATASE 107 IU/L (46-116); ANION GAP 5 (8-16); ASPARTATE AMINO TRANSFERASE 22 U/L (10-37); BILIRUBIN,TOTAL 0.3 MG/DL (0.1-1.0); BLOOD UREA NITROGEN 13 MG/DL (7-18); BUN/CREATININE RATIO 15.7 (6.6-38.0); CALCIUM 9.3 MG/DL (8.5-10.1); CHLORIDE 102 MMOL/L (99-107); CREATININE 0.83 MG/DL (0.40-0.90); GLUCOSE 82 MG/DL (70-104); POTASSIUM 4.4 MMOL/L (3.5-5.1); SODIUM 137 MMOL/L (135-145); TOTAL CARBON DIOXIDE 29.6 MMOL/L (24-32); TOTAL PROTEIN 8.1 G/DL (6.4-8.2); eGFR 68 ML/MIN
[2018-12-15] MEDS ORDERED: ASPI-974 PO (13:49)
[2018-12-15] MEDS ORDERED: CELE-85 PO (13:51)
[2018-12-15] MEDS ORDERED: BUPR300T54 PO (13:55)
[2018-12-15] MEDS ORDERED: pneumococcal 23-VAL P-sac vacc 25 mcg/0.5ml vial IMVAC ONE (14:45)
[2018-12-15] MEDS: HYDROcodone/acetaminophen 10/325mg tab PO PRN (16:10)
--- NOTE | 2018-12-15 18:14 | NUR ---
Problems reprioritized. Patient report given, questions answered & plan of care reviewed with Allison YBARRA.
--- NOTE | 2018-12-15 18:20 | NUR ---
Received report from TATE Grant. Assumed patient care.
[2018-12-15] MEDS ORDERED: sevoflurane 250ml liquid IH ONE (19:05)
[2018-12-15] MEDS ORDERED: fentaNYL /PF 50mcg/ml 5ml ampule ONE (19:07)
[2018-12-15] MEDS ORDERED: midazolam 2 mg/2 ml injection ONE (19:07)
[2018-12-15] MEDS ORDERED: vancomycin 1,000mg inj ONE (19:57)
[2018-12-15] MEDS ORDERED: ringers solution, lacted 1,000 ML IV SCH (19:59)
[2018-12-15] MEDS ORDERED: morphine 4 MG/ML inj SYRINge IV PRN ×2 (20:00)
[2018-12-15] MEDS ORDERED: proCHLORperazine 10 MG/2 ml inj IV PRN (20:00)
[2018-12-15] MEDS: budesonide 0.5mg/2ml UD nebule IH SCH (20:00)
[2018-12-15] MEDS ORDERED: meperidine/PF 25mg/ml syringe IV PRN ×2 (20:00)
[2018-12-15] MEDS ORDERED: oxyCODONE IR 5mg (immed. release) tablet PO PRN (20:10)
--- NOTE | 2018-12-15 20:20 | NUR ---
ADMITTED TO PACU FROM OR ACCOMPANIED BY ANESTHESIA. INTIAL PHYSICAL ASSESSMENT DONE AND RECORDED. REPORT RECEIVED FROM ANESTHESIA.
[2018-12-15] MEDS ORDERED: LIDOcaine 2% (20mg/ml) 5ml vial ONE (20:34)
[2018-12-15] MEDS ORDERED: dexamethasone sod phosphate 4mg/ml inj. ONE (20:34)
[2018-12-15] MEDS ORDERED: ondansetron/PF 4mg/2ml inj ONE (20:34)
[2018-12-15] MEDS ORDERED: propofol inj 20 ML IV ONE (20:34)
[2018-12-15] MEDS ORDERED: ceFAZolin 1000mg inj ONE (20:34)
[2018-12-15] MEDS: meperidine/PF 25mg/ml syringe IV PRN ×2 (20:38→20:50)
[2018-12-15] MEDS: sennosides 8.6mg tablet PO SCH ×2 (21:00→23:19)
--- NOTE | 2018-12-15 21:30 | NUR ---
PACU DISCHARGE CRITERIA MET, REPORT GIVEN TO FLOOR. MEDICATED FOR PAIN DURING PACU STAY WITH [facility], FLOOR RN AWARE. TRANSFERRED TO ROOM IN STABLE GOOD CONDITION.
[2018-12-15] MEDS: oxyCODONE IR 5mg (immed. release) tablet PO PRN (21:51)
[2018-12-15] MEDS ORDERED: TRANEXAMIC ACID IN NACL,ISO-OS 100 ML IV ONE (23:10)
[2018-12-15] MEDS: buPROPion SR 150mg tablet PO SCH (23:19)
[2018-12-15] MEDS: oxybutynin 5mg tablet PO SCH (23:19)
[2018-12-16 01:00] VITALS: BP 162/83
--- NOTE | 2018-12-16 01:00 | NUR ---
Vitals machine did not save post-op vitals. Addendum: 12/16/18 at 0328 by Allison Carlson RN Amended: Links added.
[2018-12-16] MEDS: HYDROmorphone 1 mg/ml syringe IV PRN ×4 (01:12→21:47)
[2018-12-16] MEDS: acetaminophen 325mg tablet PO SCH ×4 (01:12→20:30)
[2018-12-16] MEDS: ceFAZolin 1GM/D5W- ADD-VANTAGE 50 ML IV SCH ×2 (01:21→10:52)
[2018-12-16 02:00] VITALS: BP 136/73
[2018-12-16] MEDS: oxyCODONE IR 5mg (immed. release) tablet PO PRN (03:53)
[2018-12-16] MEDS: potassium cl 20mEq in 1/2 NS 1,000 ML IV SCH ×4 (04:06→18:49)
[2018-12-16 06:00] VITALS: BP 157/81
--- NOTE | 2018-12-16 06:20 | NUR ---
Patient report given, questions answered and plan of care reviewed with TATE Grant.
[2018-12-16 06:21] LABS: BASOPHILS % (AUTO) 0.1 % (0-1); EOSINOPHILS % (AUTO) 0 % (0-6); HEMATOCRIT 32.1 % (35.0-45.0); HEMOGLOBIN 10.8 g/dl (12.0-16.0); LYMPHOCYTES # (AUTO) 0.6 X10'3 (1.1-4.8); LYMPHOCYTES % (AUTO) 8.5 % (21-51); MEAN CORPUSCULAR HGB CONC 33.6 g/dL (33.0-36.5); MEAN CORPUSCULAR VOLUME 89.3 FL (78-98); MEAN PLATELET VOLUME 6.5 FL (7.4-10.4); MONOCYTES # (AUTO) 0.3 X10'3 (0-0.9); MONOCYTES % (AUTO) 4.4 % (2-12); PLATELET COUNT 331 X10'3 (140-440); RED CELL DISTRIBUTION WIDTH 14.2 % (11.5-14.5); WHITE BLOOD COUNT 6.9 X10'3 (4.5-11.0)
--- NOTE | 2018-12-16 06:29 | NUR ---
Patient in room ORTHO 4009. I have received report from Lula YBARRA and had the opportunity to ask questions and assume patient care.
[2018-12-16 06:36] LABS: ANION GAP 4 (8-16); CHLORIDE 104 MMOL/L (99-107); POTASSIUM 4.6 MMOL/L (3.5-5.1); SODIUM 138 MMOL/L (135-145); TOTAL CARBON DIOXIDE 29.7 MMOL/L (24-32)
[2018-12-16] MEDS: vitamin D (cholecalciferol) 1,000 unit tablet PO SCH (07:35)
[2018-12-16] MEDS: celeCOXIB 100mg capsule PO SCH (07:36)
[2018-12-16] MEDS: metoclopramide 10mg tablet PO SCH (07:36)
[2018-12-16] MEDS: HYDROcodone/acetaminophen 10/325mg tab PO PRN ×4 (07:36→23:15)
[2018-12-16] MEDS: pantoprazole 40mg Tablet.DR PO SCH (07:37)
[2018-12-16] MEDS: ascorbic acid 500mg tablet PO SCH (07:37)
[2018-12-16] MEDS: cetirizine 10mg tablet PO SCH (07:37)
[2018-12-16] MEDS: oxybutynin 5mg tablet PO SCH ×3 (07:37→21:38)
[2018-12-16] MEDS: benzonatate 100mg capsule PO SCH ×2 (07:37→20:29)
[2018-12-16] MEDS: primidone 250mg tablet PO SCH (07:37)
[2018-12-16] MEDS: buPROPion SR 150mg tablet PO SCH ×2 (07:37→20:29)
[2018-12-16] MEDS: aspirin 325mg tablet PO SCH (07:37)
[2018-12-16] MEDS ORDERED: DOXY-224 PO (07:59)
[2018-12-16] MEDS ORDERED: vancomycin/NS 1 GM ADD-VANTAGE 250 ML IV SCH (08:00)
[2018-12-16] MEDS ORDERED: non-formulary drug (Biotin 2 TAB) PO SCH (08:00)
[2018-12-16] MEDS: budesonide 0.5mg/2ml UD nebule IH SCH ×2 (09:51→20:00)
[2018-12-16 10:00] VITALS: BP 151/66
[2018-12-16] MEDS: DOXYCYCLINE 100MG CAPSULE PO SCH ×2 (10:51→18:21)
[2018-12-16] MEDS: nortriptyline 25mg capsule PO SCH (10:52)
--- NOTE | 2018-12-16 11:30 | NUR ---
Student documentation: I have reviewed all interventions, assessments performed and documented by [facility]. Student Medication Administration: For this medication-pass time frame, all medication were reviewed, dispensed, administered and documented per hospital policy by [facility].
[2018-12-16] MEDS ORDERED: vancomycin/NS 1 GM ADD-VANTAGE 250 ML IV ONE (12:40)
[2018-12-16 18:00] VITALS: BP 124/60
--- NOTE | 2018-12-16 18:13 | NUR ---
Problems reprioritized. Patient report given, questions answered & plan of care reviewed with Jaja YBARRA.
[2018-12-16] MEDS: lactobacillus rhamnosus 10,000 MMU CELLS/CAPSULE PO SCH (20:29)
[2018-12-16] MEDS: sennosides 8.6mg tablet PO SCH ×2 (21:00)
[2018-12-16 22:00] VITALS: BP 136/47
[2018-12-17] MEDS: albuterol 2.5 MG/3 ML nebule NEB PRN ×2 (00:29→08:40)
[2018-12-17] MEDS: HYDROmorphone 1 mg/ml syringe IV PRN (01:51)
[2018-12-17] MEDS: acetaminophen 325mg tablet PO SCH ×3 (02:00→14:47)
[2018-12-17] MEDS: potassium cl 20mEq in 1/2 NS 1,000 ML IV SCH ×2 (04:06→12:06)
[2018-12-17] MEDS: HYDROcodone/acetaminophen 10/325mg tab PO PRN ×3 (05:00→16:47)
[2018-12-17 05:52] LABS: BASOPHILS # (AUTO) 0.1 X10'3 (0-0.2); BASOPHILS % (AUTO) 0.6 % (0-1); EOSINOPHILS # (AUTO) 0.3 X10'3 (0-0.9); HEMATOCRIT 30.8 % (35.0-45.0); HEMOGLOBIN 10.4 g/dl (12.0-16.0); LYMPHOCYTES # (AUTO) 1.8 X10'3 (1.1-4.8); LYMPHOCYTES % (AUTO) 19.2 % (21-51); MEAN CORPUSCULAR HEMOGLOBIN 30.3 PG (27.0-31.0); MEAN CORPUSCULAR HGB CONC 33.9 g/dL (33.0-36.5); MEAN CORPUSCULAR VOLUME 89.5 FL (78-98); MEAN PLATELET VOLUME 6.3 FL (7.4-10.4); MONOCYTES % (AUTO) 11.1 % (2-12); NEUTROPHILS # (AUTO) 6.1 X10'3 (1.8-7.7); NEUTROPHILS % (AUTO) 66.1 % (42-75); PLATELET COUNT 286 X10'3 (140-440); RED BLOOD COUNT 3.44 X10'6 (4.20-5.60); RED CELL DISTRIBUTION WIDTH 14.1 % (11.5-14.5); WHITE BLOOD COUNT 9.3 X10'3 (4.5-11.0)
[2018-12-17 06:00] VITALS: BP 135/53
[2018-12-17] MEDS ORDERED: OXYC-150 PO (06:30)
--- NOTE | 2018-12-17 06:53 | NUR ---
Patient in room ORTHO 4009. I have received report from Zuleika YBARRA and had the opportunity to ask questions and assume patient care.
[2018-12-17] MEDS: buPROPion SR 150mg tablet PO SCH (07:55)
[2018-12-17] MEDS: nortriptyline 25mg capsule PO SCH (07:55)
[2018-12-17] MEDS: lactobacillus rhamnosus 10,000 MMU CELLS/CAPSULE PO SCH (07:55)
[2018-12-17] MEDS: DOXYCYCLINE 100MG CAPSULE PO SCH (07:55)
[2018-12-17] MEDS: pantoprazole 40mg Tablet.DR PO SCH (07:55)
[2018-12-17] MEDS: vitamin D (cholecalciferol) 1,000 unit tablet PO SCH (07:56)
[2018-12-17] MEDS: primidone 250mg tablet PO SCH (07:57)
[2018-12-17] MEDS: aspirin 325mg tablet PO SCH (07:57)
[2018-12-17] MEDS: oxybutynin 5mg tablet PO SCH ×2 (07:57→13:01)
[2018-12-17] MEDS: benzonatate 100mg capsule PO SCH (07:57)
[2018-12-17] MEDS: metoclopramide 10mg tablet PO SCH (07:58)
[2018-12-17] MEDS: ascorbic acid 500mg tablet PO SCH (07:59)
[2018-12-17] MEDS: cetirizine 10mg tablet PO SCH (08:00)
[2018-12-17] MEDS: celeCOXIB 100mg capsule PO SCH (08:00)
[2018-12-17] MEDS: budesonide 0.5mg/2ml UD nebule IH SCH (08:41)
--- NOTE | 2018-12-17 17:28 | NUR ---
Safe DC with daughter. all personnel items with patient.
[2018-12-17] MEDS ORDERED: acetaminophen 325mg tablet PO PRN (20:10)
== END 2018-12-17 17:29 | disposition home or self-care (01) | DRG 496 ==
LOC: ER 11:38 → ED HOLD 12:57 → ORTHO 4S 14:45
PROVIDERS: ADMIT Orthopaedic Surgery; ATTEND Orthopaedic Surgery
PROC: 0RPK0JZ Removal of Synthetic Substitute from Left Shoulder Joint, Open Approach (ICD-10-PCS; 2018-12-15)
PROC: 0RUK0JZ Supplement Left Shoulder Joint with Synthetic Substitute, Open Approach (ICD-10-PCS; 2018-12-15)
PROC: 0RCK0ZZ Extirpation of Matter from Left Shoulder Joint, Open Approach (ICD-10-PCS; principal; 2018-12-15 19:05)
PROC: 3E0234Z Introduction of Serum, Toxoid and Vaccine into Muscle, Percutaneous Approach (ICD-10-PCS; 2018-12-16)
DX: T84.59XA Infection and inflammatory reaction due to other internal joint prosthesis, initial encounter (principal); D62 Acute posthemorrhagic anemia; M96.830 Postprocedural hemorrhage of a musculoskeletal structure following a musculoskeletal system procedure; F32.9 Major depressive disorder, single episode, unspecified; J30.2 Other seasonal allergic rhinitis; K21.9 Gastro-esophageal reflux disease without esophagitis; Z96.612 Presence of left artificial shoulder joint; Z96.643 Presence of artificial hip joint, bilateral; G43.909 Migraine, unspecified, not intractable, without status migrainosus; Y83.1 Surgical operation with implant of artificial internal device as the cause of abnormal reaction of the patient, or of later complication, without mention of misadventure at the time of the procedure; Z96.649 Presence of unspecified artificial hip joint; G89.29 Other chronic pain; M54.9 Dorsalgia, unspecified; M19.90 Unspecified osteoarthritis, unspecified site; E66.9 Obesity, unspecified; Z88.6 Allergy status to analgesic agent; Z88.8 Allergy status to other drugs, medicaments and biological substances; Z91.030 Bee allergy status; Z79.82 Long term (current) use of aspirin; Z87.891 Personal history of nicotine dependence; Z90.711 Acquired absence of uterus with remaining cervical stump; Z23 Encounter for immunization; Y92.89 Other specified places as the place of occurrence of the external cause; Z98.891 History of uterine scar from previous surgery; Z80.9 Family history of malignant neoplasm, unspecified; Z90.49 Acquired absence of other specified parts of digestive tract; Z68.30 Body mass index [BMI] 30.0-30.9, adult
CPT/HCPCS: 36415; 71045; 76937; 80051; 80053; 85025; 86885; 86900; 86901; 87070; 87081; 90732; 93005; 94640; 94760; 97112; 97116; 97161; 97530; 99285; A4215; A4565; A4618; A6449; A7000; C1776; G0378; J0690; J1100; J1170; J2001; J2175; J2250; J2405; J2704; J3010; J3370; J3480; J7030; J7120; J7626; J8597